=== PATIENT | male | born 1990 | race African-American/Black ===

== ENCOUNTER 2017-01-19 11:25 | Emergency (ER) | payer MEDICAID ==
[~2017-01-19] VITALS: Ht 175.3 cm; Wt 90.3 kg
[2017-01-19] MEDS ORDERED: ONDANSETRON 4MG ODT PO ONE (12:30)
[2017-01-19] MEDS ORDERED: MORPHINE SULFATE 10 MG/ML CPJ IM ONE (12:30)
[2017-01-19] MEDS ORDERED: SILVER SULFADIAZINE 1% CREAM 25GM TOP ONE (12:45)
[2017-01-19 13:02] VITALS: BP 142/95
[2017-01-19] MEDS ORDERED: TETANUS, DIPHTHERIA, PERTUSSIS VAC/PF 0.5ML (>7YR OLD) IM ONE (14:15)
== END 2017-01-19 14:13 | disposition home or self-care (01) ==
LOC: ER 12:25
DX: T23.051A Burn of unspecified degree of right palm, initial encounter (principal); T23.052A Burn of unspecified degree of left palm, initial encounter; T21.09XA Burn of unspecified degree of other site of trunk, initial encounter; T24.022A Burn of unspecified degree of left knee, initial encounter; F17.210 Nicotine dependence, cigarettes, uncomplicated; F12.10 Cannabis abuse, uncomplicated; V29.3XXA Motorcycle rider (driver) (passenger) injured in unspecified nontraffic accident, initial encounter; Y92.488 Other paved roadways as the place of occurrence of the external cause
CPT/HCPCS: 16000; 90471; 90715; 96372; 99284; J2270; Q0162; X7700

== ENCOUNTER 2017-01-27 23:09 | Emergency (ER) | payer MEDICAID ==
[~2017-01-27] VITALS: Ht 175.3 cm; Wt 91.0 kg
[2017-01-27 23:42] VITALS: BP 150/84
== END 2017-01-28 01:12 | disposition left against medical advice (07) ==
LOC: ER 23:09
DX: M79.643 Pain in unspecified hand (principal); Z53.21 Procedure and treatment not carried out due to patient leaving prior to being seen by health care provider

== ENCOUNTER 2017-07-16 23:32 | Emergency (ER) | payer MEDICAID ==
[~2017-07-16] VITALS: Ht 170.2 cm; Wt 110.0 kg
[2017-07-17 00:07] VITALS: BP 167/85
== END 2017-07-17 05:00 | disposition left against medical advice (07) ==
LOC: ER 07-17 02:34
DX: R51 Headache (principal); Z53.21 Procedure and treatment not carried out due to patient leaving prior to being seen by health care provider